=== PATIENT | male | born 1980 | race Caucasian/White ===

== ENCOUNTER 2019-02-06 17:18 | Emergency (ER) | payer MEDICAID ==
[~2019-02-06] VITALS: Ht 182.9 cm; Wt 81.8 kg
[2019-02-06 18:03] LABS: CLARITY,URINE SLIGHTLY CLOUDY (Clear); GLUCOSE, URINE NEGATIVE (Neg); KETONES,URINE NEGATIVE (Neg); LEUKOCYTE ESTERASE ,URINE NEGATIVE (Neg); NITRITES, URINE NEGATIVE (Neg); OCCULT BLOOD,URINE NEGATIVE (Neg); PROTEIN,URINE NEGATIVE (Neg)
[2019-02-06 18:10] LABS: COLOR,URINE DARK YELLOW (Yellow); UA COLLECTION TYPE VOIDED
[2019-02-06 18:13] LABS: AMORPHOUS URATES 2+
[2019-02-06 18:14] LABS: BACTERIA,URINE NONE SEEN /HPF (Neg); MUCUS STRANDS FEW /LPF (Neg); RBC,URINE NONE SEEN /HPF (0-2); SQUAMOUS EPITHELIAL CELL,UR FEW /LPF (FEW); WBC,URINE 0-4 /HPF (0-4)
[2019-02-06 18:15] LABS: HYALINE CASTS 0-3 /LPF (NEGATIVE)
[2019-02-06 18:16] LABS: BASOPHILS # (AUTO) 0.1 X10'3 (0-0.2); BASOPHILS % (AUTO) 1.4 % (0-1); EOSINOPHILS # (AUTO) 0.5 X10'3 (0-0.9); EOSINOPHILS % (AUTO) 5.8 % (0-6); HEMATOCRIT 46.5 % (42.0-52.0); LYMPHOCYTES # (AUTO) 4.3 X10'3 (1.1-4.8); LYMPHOCYTES % (AUTO) 47.8 % (21-51); MEAN CORPUSCULAR HEMOGLOBIN 30.1 PG (27.0-31.0); MEAN CORPUSCULAR HGB CONC 34.5 g/dL (33.0-36.5); MEAN CORPUSCULAR VOLUME 87.2 FL (78-98); MEAN PLATELET VOLUME 8.7 FL (7.4-10.4); MONOCYTES % (AUTO) 10.6 % (2-12); NEUTROPHILS # (AUTO) 3.1 X10'3 (1.8-7.7); NEUTROPHILS % (AUTO) 34.4 % (42-75); PLATELET COUNT 254 X10'3 (140-440); RED BLOOD COUNT 5.34 X10'6 (4.70-6.10); RED CELL DISTRIBUTION WIDTH 15.3 % (11.5-14.5)
[2019-02-06 18:25] LABS: ALBUMIN 3.6 G/DL (3.4-5.0); ALBUMIN/GLOBULIN RATIO 0.9 (1.1-1.5); ALKALINE PHOSPHATASE 293 IU/L (46-116); ANION GAP 6 (8-16); BILIRUBIN,TOTAL 1.4 MG/DL (0.1-1.0); BLOOD UREA NITROGEN 19 MG/DL (7-18); BUN/CREATININE RATIO 15.8 (5.4-32.0); CALCIUM 9.3 MG/DL (8.5-10.1); CHLORIDE 103 MMOL/L (99-107); GLUCOSE 86 MG/DL (70-104); POTASSIUM 4.1 MMOL/L (3.5-5.1); SODIUM 139 MMOL/L (135-145); TOTAL CARBON DIOXIDE 29.8 MMOL/L (24-32); TOTAL PROTEIN 7.4 G/DL (6.4-8.2); eGFR 68 ML/MIN
[2019-02-06 18:38] LABS: CKMB RELATIVE INDEX 2.4 RATIO (0-2.5); CREATINE KINASE 101 U/L (39-308)
[2019-02-06 18:45] LABS: ALANINE AMINOTRANSFERASE 1985 U/L (12-78); ASPARTATE AMINO TRANSFERASE 1198 U/L (10-37)
--- NOTE | 2019-02-06 19:47 | NUR ---
lab at bedside to draw bld.
[2019-02-06 20:00] LABS: PARTIAL THROMBOPLASTIN TIME 31 SECONDS (22-32)
[2019-02-06 20:17] VITALS: BP 124/62
[2019-02-08 14:23] LABS: HBSAG SCREEN Negative (Negative); HEP A AB, IGM Negative (Negative); HEP B CORE AB, IGM Negative (Negative); HEPATITIS C ANTIBODY >11.0 s/co ratio (0.0-0.9)
[2019-02-08] MEDS ORDERED: TEST200V10 IM (15:49)
[2019-02-09] MEDS ORDERED: ONDA4TAB6 PO (12:48)
[2019-02-09] MEDS ORDERED: TRAM50TA2 PO (12:48)
== END 2019-02-06 20:22 | disposition home or self-care (01) ==
LOC: ER 17:20
DX: B17.9 Acute viral hepatitis, unspecified (principal); F11.90 Opioid use, unspecified, uncomplicated; M79.10 Myalgia, unspecified site; R20.0 Anesthesia of skin; Z60.2 Problems related to living alone; Z56.0 Unemployment, unspecified; Z88.0 Allergy status to penicillin
CPT/HCPCS: 36415; 80053; 80074; 81001; 82550; 82553; 83874; 85025; 85610; 85730; 99283

== ENCOUNTER 2019-03-20 23:13 | Emergency (ER) | payer MEDICAID ==
[~2019-03-20] VITALS: Ht 182.9 cm; Wt 77.3 kg
[~2019-03-20 23:13] MED LIST: ONDA4TAB6 PO
[2019-03-20] MEDS ORDERED: LORazepam 1 MG tablet PO ONE (23:15)
--- NOTE | 2019-03-20 23:58 | NUR ---
HE IS SLEEPING
[2019-03-21 00:41] VITALS: BP 132/72
== END 2019-03-21 00:35 | disposition home or self-care (01) ==
LOC: ER 23:13
DX: F41.9 Anxiety disorder, unspecified (principal); F12.90 Cannabis use, unspecified, uncomplicated; F11.90 Opioid use, unspecified, uncomplicated; Z60.2 Problems related to living alone; Z56.0 Unemployment, unspecified; Z88.0 Allergy status to penicillin; Z79.899 Other long term (current) drug therapy
CPT/HCPCS: 99284

== ENCOUNTER 2019-06-20 10:00 | Emergency (ER) | payer MEDICAID ==
[~2019-06-20] VITALS: Ht 182.9 cm; Wt 74.0 kg
[2019-06-20] MEDS ORDERED: HYDROcodone/acetaminophen 5mg/325mg tablet PO ONE (10:40)
[2019-06-20] MEDS ORDERED: LORazepam 1 MG tablet PO ONE (10:40)
--- NOTE | 2019-06-20 10:40 | NUR ---
Dr Haley at bedside.
[2019-06-20] MEDS ORDERED: HYDR-3965 PO (10:41)
[2019-06-20 10:54] VITALS: BP 130/77
--- NOTE | 2019-06-20 11:00 | NUR ---
Dr Haley at bedside to check splint application. Pt okay to be discharged.
== END 2019-06-20 11:12 | disposition home or self-care (01) ==
LOC: ER 10:00
DX: S62.353A Nondisplaced fracture of shaft of third metacarpal bone, left hand, initial encounter for closed fracture (principal); F12.90 Cannabis use, unspecified, uncomplicated; F11.90 Opioid use, unspecified, uncomplicated; Z56.0 Unemployment, unspecified; Z60.2 Problems related to living alone; Z88.0 Allergy status to penicillin; Z79.899 Other long term (current) drug therapy; W22.8XXA Striking against or struck by other objects, initial encounter; Y93.89 Activity, other specified; Y92.89 Other specified places as the place of occurrence of the external cause; Y99.8 Other external cause status
CPT/HCPCS: 29125; 73110; 73130; 99284

== ENCOUNTER 2019-10-15 13:56 | Emergency (ER) | payer MEDICAID ==
[~2019-10-15] VITALS: Ht 182.9 cm; Wt 77.3 kg
[2019-10-15 15:04] LABS: BASOPHILS % (AUTO) 0.2 % (0-1); EOSINOPHILS # (AUTO) 0.1 X10'3 (0-0.9); EOSINOPHILS % (AUTO) 0.8 % (0-6); HEMATOCRIT 43.6 % (42.0-52.0); HEMOGLOBIN 14.8 g/dl (14.0-17.9); LYMPHOCYTES # (AUTO) 2.6 X10'3 (1.1-4.8); LYMPHOCYTES % (AUTO) 22.3 % (21-51); MEAN CORPUSCULAR HEMOGLOBIN 30.1 PG (27.0-31.0); MEAN CORPUSCULAR HGB CONC 33.8 g/dL (33.0-36.5); MEAN PLATELET VOLUME 7.7 FL (7.4-10.4); MONOCYTES % (AUTO) 8.2 % (2-12); NEUTROPHILS % (AUTO) 68.5 % (42-75); PLATELET COUNT 239 X10'3 (140-440); RED CELL DISTRIBUTION WIDTH 13.4 % (11.5-14.5); WHITE BLOOD COUNT 11.7 X10'3 (4.5-11.0)
[2019-10-15 15:21] LABS: CHLORIDE 99 MMOL/L (99-107); GLUCOSE 78 MG/DL (70-104); POTASSIUM 3.4 MMOL/L (3.5-5.1); SODIUM 135 MMOL/L (135-145); TOTAL CARBON DIOXIDE 30.1 MMOL/L (24-32)
[2019-10-15 15:22] LABS: CLARITY,URINE CLOUDY (Clear); COLOR,URINE YELLOW (Yellow); GLUCOSE, URINE NEGATIVE (Neg); KETONES,URINE 15 mg/dl (Neg); LEUKOCYTE ESTERASE ,URINE NEGATIVE (Neg); NITRITES, URINE NEGATIVE (Neg); OCCULT BLOOD,URINE NEGATIVE (Neg); PH,URINE 5.5 (4.8-8.0); PROTEIN,URINE NEGATIVE (Neg); UA COLLECTION TYPE CLN CATCH MIDSTREAM; UROBILINOGEN,URINE 0.2 E.U/dL (0.2-1.0)
[2019-10-15 15:22] LABS: ALANINE AMINOTRANSFERASE 41 U/L (12-78); ALBUMIN 4.1 G/DL (3.4-5.0); ALBUMIN/GLOBULIN RATIO 1.1 (1.1-1.5); ALKALINE PHOSPHATASE 67 IU/L (46-116); AMYLASE 117 U/L (25-115); ANION GAP 6 (8-16); ASPARTATE AMINO TRANSFERASE 30 U/L (10-37); BILIRUBIN,TOTAL 0.8 MG/DL (0.1-1.0); BLOOD UREA NITROGEN 18 MG/DL (7-18); BUN/CREATININE RATIO 18.8 (5.4-32.0); CALCIUM 8.5 MG/DL (8.5-10.1); CREATININE 0.96 MG/DL (0.60-1.10); LIPASE 310 U/L (73-393); TOTAL PROTEIN 7.8 G/DL (6.4-8.2); eGFR 87 ML/MIN
[2019-10-15] MEDS ORDERED: normal saline 1000ML IV soln IVB ONE ×2 (15:30→16:25)
[2019-10-15] MEDS ORDERED: ketorolac tromethamine 15mg/ml inj. IV ONE (15:30)
[2019-10-15] MEDS ORDERED: ondansetron/PF 4mg/2ml inj IV ONE (15:30)
[2019-10-15 15:34] LABS: AMORPHOUS URATES 4+; BACTERIA,URINE 1+ /HPF (Neg); RBC,URINE 0-2 /HPF (0-2); SQUAMOUS EPITHELIAL CELL,UR NONE SEEN /LPF (FEW); WBC,URINE 0-4 /HPF (0-4)
[2019-10-15] MEDS ORDERED: iohexol 300mg/ml 100ml inj. ONE (15:34)
--- NOTE | 2019-10-15 16:10 | NUR ---
Pt transported to CT via wheelchair with tech.
--- NOTE | 2019-10-15 16:16 | NUR ---
Pt returned from CT
[2019-10-15] MEDS ORDERED: ONDA4TAB12 PO (17:16)
[2019-10-15 17:24] VITALS: BP 135/79
== END 2019-10-15 17:30 | disposition home or self-care (01) ==
LOC: ER 13:56
DX: R10.11 Right upper quadrant pain (principal); R44.3 Hallucinations, unspecified; R11.0 Nausea; F12.90 Cannabis use, unspecified, uncomplicated; F11.90 Opioid use, unspecified, uncomplicated; Z60.2 Problems related to living alone; Z56.0 Unemployment, unspecified; Z88.0 Allergy status to penicillin; Z79.899 Other long term (current) drug therapy
CPT/HCPCS: 36415; 74177; 76700; 80053; 81001; 82150; 83690; 85025; 96361; 96374; 96375; 99285; J1885; J2405; J7030; Q9967

== ENCOUNTER 2020-07-02 20:53 | Emergency (ER) | payer MEDICAID ==
[~2020-07-02] VITALS: Ht 185.4 cm; Wt 77.3 kg
[2020-07-02 20:53] VITALS: BP 115/79
[~2020-07-02 20:53] MED LIST changes: +ONDA4TAB12 PO
[2020-07-02] MEDS ORDERED: CEPH250T PO (21:18)
[2020-07-02] MEDS ORDERED: SULF1TAB49 PO (21:18)
[2020-07-02] MEDS ORDERED: cephalexin 500mg capsule PO ONE (21:20)
[2020-07-02] MEDS ORDERED: ibuprofen 200mg tablet PO ONE (21:20)
== END 2020-07-02 21:35 | disposition home or self-care (01) ==
LOC: ER 20:53
DX: L03.211 Cellulitis of face (principal); F12.90 Cannabis use, unspecified, uncomplicated; F11.90 Opioid use, unspecified, uncomplicated; Z60.2 Problems related to living alone; Z56.0 Unemployment, unspecified; Z88.0 Allergy status to penicillin; Z79.2 Long term (current) use of antibiotics
CPT/HCPCS: 99283

== ENCOUNTER 2020-07-04 11:56 | Emergency (ER) | payer MEDICAID ==
[~2020-07-04] VITALS: Ht 182.9 cm; Wt 73.5 kg
[~2020-07-04 11:56] MED LIST changes: +CEPH250T PO; +SULF1TAB49 PO
[2020-07-04 12:26] VITALS: BP 140/74
[2020-07-04] MEDS ORDERED: IBUP-1984 PO (15:29)
== END 2020-07-04 15:36 | disposition home or self-care (01) ==
LOC: ER 11:57
DX: M27.2 Inflammatory conditions of jaws (principal); F12.90 Cannabis use, unspecified, uncomplicated; F11.90 Opioid use, unspecified, uncomplicated; Z56.0 Unemployment, unspecified; Z60.2 Problems related to living alone; Z88.0 Allergy status to penicillin; Z79.899 Other long term (current) drug therapy
CPT/HCPCS: 76882; 99284

== ENCOUNTER 2020-07-04 22:25 | Emergency (ER) | payer MEDICAID ==
[~2020-07-04] VITALS: Ht 182.9 cm; Wt 75.0 kg
[~2020-07-04 22:25] MED LIST changes: +IBUP-1984 PO
[2020-07-04 23:27] VITALS: BP 127/92
[2020-07-05] MEDS ORDERED: LIDOcaine 1% 30ml preserv. free vial IJ ONE (00:25)
[2020-07-05] MEDS ORDERED: LORazepam 1 MG tablet PO ONE (00:30)
--- NOTE | 2020-07-05 00:49 | NUR ---
WOUND TO LOWER LIP, PA THERE CLEANING WOUND AND STITCHING IT UP
[2020-07-05] MEDS: ibuprofen tablet 400 MG TABLET PO ONE ×2 (01:28→01:42)
== END 2020-07-05 01:31 | disposition home or self-care (01) ==
LOC: ER 22:26
DX: S01.511A Laceration without foreign body of lip, initial encounter (principal); Z88.0 Allergy status to penicillin; Z79.2 Long term (current) use of antibiotics; Z79.899 Other long term (current) drug therapy; Z56.0 Unemployment, unspecified; X58.XXXA Exposure to other specified factors, initial encounter; Y04.2XXA Assault by strike against or bumped into by another person, initial encounter; Y93.89 Activity, other specified; Y92.89 Other specified places as the place of occurrence of the external cause; Y99.8 Other external cause status
CPT/HCPCS: 12011; 99283

== ENCOUNTER → 2020-11-24 | Emergency (ER) | payer MEDICAID ==
[~2020-11-24] VITALS: Ht 182.9 cm; Wt 74.8 kg
[~2020-11-24] MED LIST changes: -CEPH250T PO; -IBUP-1984 PO; -SULF1TAB49 PO
[2020-11-24 17:52] VITALS: BP 151/130
[2020-11-24 18:27] LABS: URINE AMPHETAMINE SCREEN POSITIVE (Neg); URINE BARBITUATE SCREEN NEGATIVE (Neg); URINE BENZODIAZEPINES SCREEN NEGATIVE (Neg); URINE CANNABINOID SCREEN POSITIVE (Neg); URINE COCAINE SCREEN NEGATIVE (Neg); URINE METHADONE SCREEN NEGATIVE (Neg); URINE OPIATE SCREEN POSITIVE (Neg); URINE PHENCYCLIDINE SCREEN NEGATIVE (Neg)
[2020-11-24 18:39] LABS: CLARITY,URINE CLEAR (Clear); COLOR,URINE YELLOW (Yellow); GLUCOSE, URINE NEGATIVE (Neg); KETONES,URINE NEGATIVE (Neg); LEUKOCYTE ESTERASE ,URINE NEGATIVE (Neg); NITRITES, URINE NEGATIVE (Neg); OCCULT BLOOD,URINE NEGATIVE (Neg); PROTEIN,URINE NEGATIVE (Neg); UA COLLECTION TYPE CLN CATCH MIDSTREAM; UROBILINOGEN,URINE 0.2 E.U/dL (0.2-1.0)
== END | disposition left against medical advice (07) ==
LOC: ER 17:05
DX: F15.129 Other stimulant abuse with intoxication, unspecified (principal); R00.0 Tachycardia, unspecified; M79.601 Pain in right arm; R45.1 Restlessness and agitation; F12.90 Cannabis use, unspecified, uncomplicated; F11.90 Opioid use, unspecified, uncomplicated; Z60.2 Problems related to living alone; Z56.0 Unemployment, unspecified; Z88.0 Allergy status to penicillin; Z79.899 Other long term (current) drug therapy
CPT/HCPCS: 80305; 81003; 99283

== ENCOUNTER 2021-01-07 14:01 | Emergency (ER) | payer MEDICAID ==
[~2021-01-07] VITALS: Ht 182.9 cm; Wt 78.2 kg
[2021-01-07 14:32] VITALS: BP 126/84
[2021-01-07] MEDS ORDERED: BENZ-38 PO (14:37)
[2021-01-07] MEDS ORDERED: IBUP-1985 PO (14:37)
== END 2021-01-07 14:57 | disposition home or self-care (01) ==
LOC: ER 14:03
DX: M94.0 Chondrocostal junction syndrome [Tietze] (principal); R05.9 Cough, unspecified; F12.90 Cannabis use, unspecified, uncomplicated; F11.90 Opioid use, unspecified, uncomplicated; Z60.2 Problems related to living alone; Z56.0 Unemployment, unspecified; Z88.0 Allergy status to penicillin; Z79.899 Other long term (current) drug therapy
CPT/HCPCS: 99283

== ENCOUNTER 2021-01-16 19:27 | Inpatient (IN) | payer MEDICAID ==
[~2021-01-16] VITALS: Ht 182.9 cm; Wt 77.3 kg
[~2021-01-16 19:27] MED LIST changes: +BENZ-38 PO; +IBUP-1985 PO
[2021-01-16] MEDS ORDERED: iohexol 350MG/ML 100ml bottle IV ONE (20:06)
[2021-01-16 21:46] LABS: BASOPHILS # (AUTO) 0.1 X10'3 (0-0.2); BASOPHILS % (AUTO) 0.7 % (0-1); EOSINOPHILS # (AUTO) 0.5 X10'3 (0-0.9); EOSINOPHILS % (AUTO) 4.5 % (0-6); HEMATOCRIT 37.7 % (42.0-52.0); HEMOGLOBIN 12.7 g/dl (14.0-17.9); LYMPHOCYTES # (AUTO) 3.2 X10'3 (1.1-4.8); LYMPHOCYTES % (AUTO) 26.3 % (21-51); MEAN CORPUSCULAR HEMOGLOBIN 29.2 PG (27.0-31.0); MEAN CORPUSCULAR HGB CONC 33.7 g/dL (33.0-36.5); MEAN CORPUSCULAR VOLUME 86.5 FL (78-98); MEAN PLATELET VOLUME 7.1 FL (7.4-10.4); MONOCYTES # (AUTO) 1.2 X10'3 (0-0.9); MONOCYTES % (AUTO) 10.1 % (2-12); NEUTROPHILS # (AUTO) 7.1 X10'3 (1.8-7.7); NEUTROPHILS % (AUTO) 58.4 % (42-75); PLATELET COUNT 508 X10'3 (140-440); RED BLOOD COUNT 4.36 X10'6 (4.70-6.10); RED CELL DISTRIBUTION WIDTH 13.3 % (11.5-14.5); WHITE BLOOD COUNT 12.1 X10'3 (4.5-11.0)
[2021-01-16 21:52] LABS: ALBUMIN 2.7 G/DL (3.4-5.0); ANION GAP 9 (8-16); BLOOD UREA NITROGEN 14 MG/DL (7-18); BUN/CREATININE RATIO 15.4 (5.4-32.0); CALCIUM 8.9 MG/DL (8.5-10.1); CHLORIDE 97 MMOL/L (99-107); CREATININE 0.91 MG/DL (0.60-1.10); GLUCOSE 107 MG/DL (70-104); POTASSIUM 4.6 MMOL/L (3.5-5.1); SODIUM 135 MMOL/L (135-145); eGFR > 90 ML/MIN
[2021-01-16] MEDS ORDERED: BUPR1FIL3 SL (23:08)
[2021-01-16] MEDS ORDERED: LORA-269 PO (23:08)
[2021-01-16] MEDS ORDERED: potassium Cl 40MEQ/1/2NS 520ml 520 ML IV PRN ×2 (23:35)
[2021-01-16] MEDS: normal saline 1000ml 1,000 ML IV SCH (23:35)
[2021-01-16] MEDS ORDERED: magnesium 4gm in 100ml NS 100 ML IV PRN (23:35)
[2021-01-16] MEDS ORDERED: mag hydrox/Alum hydrox/simeth 30ml oral suspension PO PRN (23:35)
[2021-01-16] MEDS ORDERED: magnesium Cl slow-release 64mg tablet PO PRN (23:35)
[2021-01-16] MEDS ORDERED: magnesium hydroxide 30ml (MOM) UD suspension PO PRN (23:35)
[2021-01-16] MEDS ORDERED: potassium Cl 20 mEq SR tablet PO PRN ×2 (23:35)
[2021-01-16] MEDS ORDERED: morphine 2 MG/ML inj. syringe IV PRN (23:35)
[2021-01-16] MEDS ORDERED: ondansetron/PF 4mg/2ml inj IV PRN (23:35)
[2021-01-16] MEDS ORDERED: acetaminophen 325mg tablet PO PRN (23:35)
[2021-01-16] MEDS ORDERED: magnesium 2GM in 50ml NS 50 ML IV PRN (23:35)
[2021-01-16] MEDS: levoFLOXACIN-Levaquin 500mg/D5 100 ML IV SCH (23:40)
--- NOTE | 2021-01-17 00:54 | NUR ---
Received report from DAVID Zavaleta. Awaiting patient arrival to the floor.
[2021-01-17 01:20] VITALS: BP 108/60
[2021-01-17 01:50] LABS: URINE AMPHETAMINE SCREEN NEGATIVE (Neg); URINE BARBITUATE SCREEN NEGATIVE (Neg); URINE BENZODIAZEPINES SCREEN NEGATIVE (Neg); URINE CANNABINOID SCREEN POSITIVE (Neg); URINE COCAINE SCREEN NEGATIVE (Neg); URINE METHADONE SCREEN NEGATIVE (Neg); URINE OPIATE SCREEN NEGATIVE (Neg); URINE PHENCYCLIDINE SCREEN NEGATIVE (Neg)
[2021-01-17] MEDS: guaiFENesin/codeine phos 10ml UD oral syrup PO PRN ×4 (04:08→19:51)
[2021-01-17] MEDS: morphine 2 MG/ML inj. syringe IV PRN ×3 (05:57→18:57)
--- NOTE | 2021-01-17 06:33 | NUR ---
Problems reprioritized. Patient report given, questions answered & plan of care reviewed with DAVID Brandon.
[2021-01-17 06:35] LABS: ALANINE AMINOTRANSFERASE 17 U/L (12-78); ALBUMIN 2.2 G/DL (3.4-5.0); ALBUMIN/GLOBULIN RATIO 0.4 (1.1-1.5); ALKALINE PHOSPHATASE 63 IU/L (46-116); ANION GAP 7 (8-16); ASPARTATE AMINO TRANSFERASE 12 U/L (10-37); BILIRUBIN,TOTAL 0.3 MG/DL (0.1-1.0); BLOOD UREA NITROGEN 6 MG/DL (7-18); BUN/CREATININE RATIO 7.4 (5.4-32.0); CALCIUM 8.4 MG/DL (8.5-10.1); CHLORIDE 104 MMOL/L (99-107); CREATININE 0.81 MG/DL (0.60-1.10); GLUCOSE 105 MG/DL (70-104); MAGNESIUM 2.1 MG/DL (1.5-2.4); POTASSIUM 4.5 MMOL/L (3.5-5.1); SODIUM 139 MMOL/L (135-145); TOTAL CARBON DIOXIDE 28.3 MMOL/L (24-32); TOTAL PROTEIN 7.1 G/DL (6.4-8.2); eGFR > 90 ML/MIN
[2021-01-17 06:49] LABS: BASOPHILS # (AUTO) 0.1 X10'3 (0-0.2); BASOPHILS % (AUTO) 0.9 % (0-1); EOSINOPHILS # (AUTO) 0.5 X10'3 (0-0.9); HEMATOCRIT 35.9 % (42.0-52.0); HEMOGLOBIN 12.3 g/dl (14.0-17.9); LYMPHOCYTES # (AUTO) 2.4 X10'3 (1.1-4.8); LYMPHOCYTES % (AUTO) 23.5 % (21-51); MEAN CORPUSCULAR HEMOGLOBIN 29.7 PG (27.0-31.0); MEAN CORPUSCULAR HGB CONC 34.4 g/dL (33.0-36.5); MEAN CORPUSCULAR VOLUME 86.2 FL (78-98); MEAN PLATELET VOLUME 7.2 FL (7.4-10.4); MONOCYTES # (AUTO) 0.9 X10'3 (0-0.9); MONOCYTES % (AUTO) 8.8 % (2-12); NEUTROPHILS # (AUTO) 6.4 X10'3 (1.8-7.7); NEUTROPHILS % (AUTO) 61.8 % (42-75); PLATELET COUNT 506 X10'3 (140-440); RED BLOOD COUNT 4.16 X10'6 (4.70-6.10); RED CELL DISTRIBUTION WIDTH 13.5 % (11.5-14.5); WHITE BLOOD COUNT 10.3 X10'3 (4.5-11.0)
--- NOTE | 2021-01-17 07:04 | NUR ---
Patient in room [facility]. I have received report from Savannah HERNANDEZ and had the opportunity to ask questions and assume patient care.
[2021-01-17 07:35] VITALS: BP 121/74
[2021-01-17 07:37] VITALS: BP 114/60
[2021-01-17] MEDS ORDERED: buprenorphine/naloxone 8MG-2MG SUBlingual film SL SCH (08:00)
[2021-01-17] MEDS: K and/or MAG REPLACEMENT MC SCH ×2 (08:00→20:00)
[2021-01-17] MEDS: benzonatate 100mg capsule PO SCH ×3 (09:08→16:29)
[2021-01-17] MEDS: heparin, porcine 5000 units/ml vial SQ SCH ×2 (09:10→19:43)
[2021-01-17] MEDS: levoFLOXACIN-Levaquin 500mg/D5 100 ML IV SCH (09:18)
[2021-01-17] MEDS: HYDROcodone/acetaminophen 5mg/325mg tablet PO PRN ×2 (11:02→16:47)
[2021-01-17 11:18] VITALS: BP 113/63
--- NOTE | 2021-01-17 15:22 | NUR ---
PAGER ID: [phone] MESSAGE: Aleksandr Surg [id number] Re: [id number] Esa Dimas patient states he takes a Testosterone Cypionate injection that he is due, I said I would ask. Addendum: 01/17/21 at 1608 by Ricki Alicia RN received orders from and or alternate plan
--- NOTE | 2021-01-17 18:35 | NUR ---
Problems reprioritized. Patient report given, questions answered & plan of care reviewed with Rajwinder HERNANDEZ.
--- NOTE | 2021-01-17 18:40 | NUR ---
Patient in room [facility]. I have received report from KLEBER HERNANDEZ and had the opportunity to ask questions and assume patient care.
[2021-01-17] MEDS: lactobacillus rhamnosus 10,000 MMU CELLS/CAPSULE PO SCH (19:42)
[2021-01-17] MEDS: normal saline 1000ml 1,000 ML IV SCH (19:43)
[2021-01-17 20:00] VITALS: BP 99/75
[2021-01-17] MEDS: HYDROcodone/acetaminophen 10/325mg tab PO PRN (21:22)
[2021-01-18] VITALS: BP 92/56
[2021-01-18] MEDS: benzonatate 100mg capsule PO SCH ×3 (00:08→16:41)
[2021-01-18] MEDS: morphine 2 MG/ML inj. syringe IV PRN ×5 (00:10→20:16)
[2021-01-18] MEDS: guaiFENesin/codeine phos 10ml UD oral syrup PO PRN ×3 (03:51→20:15)
[2021-01-18] MEDS: HYDROcodone/acetaminophen 5mg/325mg tablet PO PRN (05:46)
[2021-01-18 06:07] LABS: BASOPHILS # (AUTO) 0.2 X10'3 (0-0.2); BASOPHILS % (AUTO) 1.4 % (0-1); EOSINOPHILS # (AUTO) 0.6 X10'3 (0-0.9); EOSINOPHILS % (AUTO) 5.7 % (0-6); HEMATOCRIT 39.2 % (42.0-52.0); HEMOGLOBIN 13.3 g/dl (14.0-17.9); LYMPHOCYTES # (AUTO) 3.2 X10'3 (1.1-4.8); LYMPHOCYTES % (AUTO) 28.8 % (21-51); MEAN CORPUSCULAR HEMOGLOBIN 29.3 PG (27.0-31.0); MEAN CORPUSCULAR HGB CONC 33.9 g/dL (33.0-36.5); MEAN CORPUSCULAR VOLUME 86.5 FL (78-98); MEAN PLATELET VOLUME 7.2 FL (7.4-10.4); MONOCYTES # (AUTO) 0.9 X10'3 (0-0.9); MONOCYTES % (AUTO) 8.2 % (2-12); NEUTROPHILS # (AUTO) 6.2 X10'3 (1.8-7.7); NEUTROPHILS % (AUTO) 55.9 % (42-75); PLATELET COUNT 551 X10'3 (140-440); RED BLOOD COUNT 4.53 X10'6 (4.70-6.10); RED CELL DISTRIBUTION WIDTH 13.3 % (11.5-14.5); WHITE BLOOD COUNT 11.2 X10'3 (4.5-11.0)
[2021-01-18 06:19] LABS: ALANINE AMINOTRANSFERASE 15 U/L (12-78); ALBUMIN 2.5 G/DL (3.4-5.0); ALBUMIN/GLOBULIN RATIO 0.5 (1.1-1.5); ALKALINE PHOSPHATASE 69 IU/L (46-116); ANION GAP 6 (8-16); ASPARTATE AMINO TRANSFERASE 12 U/L (10-37); BILIRUBIN,TOTAL 0.2 MG/DL (0.1-1.0); BLOOD UREA NITROGEN 10 MG/DL (7-18); BUN/CREATININE RATIO 10.5 (5.4-32.0); CALCIUM 8.9 MG/DL (8.5-10.1); CHLORIDE 103 MMOL/L (99-107); CREATININE 0.95 MG/DL (0.60-1.10); GLUCOSE 89 MG/DL (70-104); MAGNESIUM 2.1 MG/DL (1.5-2.4); POTASSIUM 4.4 MMOL/L (3.5-5.1); SODIUM 142 MMOL/L (135-145); TOTAL PROTEIN 7.9 G/DL (6.4-8.2); eGFR 88 ML/MIN
--- NOTE | 2021-01-18 06:30 | NUR ---
Problems reprioritized. Patient report given, questions answered & plan of care reviewed with ANNABELLE HERNANDEZ.
[2021-01-18] MEDS: levoFLOXACIN-Levaquin 500mg/D5 100 ML IV SCH (07:18)
[2021-01-18] MEDS: heparin, porcine 5000 units/ml vial SQ SCH ×3 (07:19→20:17)
[2021-01-18] MEDS: lactobacillus rhamnosus 10,000 MMU CELLS/CAPSULE PO SCH ×2 (07:19→20:15)
[2021-01-18] MEDS: LORazepam 1 MG tablet PO PRN (07:19)
[2021-01-18] MEDS: K and/or MAG REPLACEMENT MC SCH ×2 (07:22→20:00)
[2021-01-18 08:00] VITALS: BP 111/70
[2021-01-18] MEDS: HYDROcodone/acetaminophen 10/325mg tab PO PRN ×3 (10:21→21:50)
[2021-01-18 10:25] LABS: BFSOURCE RIGHT PLEURAL FLD; PLEURAL FLUID PH 7.351 (7.63-7.65)
[2021-01-18 10:46] LABS: GLUCOSE,BODY FLUID 99 MG/DL; TOTAL PROTEIN,BODY FLUID 5.4 G/DL
[2021-01-18 11:00] VITALS: BP 97/57
[2021-01-18 11:19] LABS: EOSINOPHILS,BODY FLUID 12 %; LYMPHOCYTES,BODY FLUID 75 %; MONOCYTES,BODY FLUID 1 %; NEUTROPHILS,BODY FLUID 12 %
[2021-01-18 11:23] LABS: BFAPPEAR BLOODY
[2021-01-18 11:24] LABS: BF RBC COUNT 37000 /CU MM; BF WBC COUNT 1660 /CU MM (0-1000); BFCOLOR RED; BFVOLUME 50 ML
[2021-01-18] MEDS: normal saline 1000ml 1,000 ML IV SCH (15:50)
[2021-01-18 20:00] VITALS: BP 116/68
[2021-01-18] MEDS: temazepam 15mg capsule PO PRN (20:15)
[2021-01-19] VITALS: BP 117/62
[2021-01-19] MEDS: benzonatate 100mg capsule PO SCH ×4 (01:12→23:58)
[2021-01-19] MEDS: morphine 2 MG/ML inj. syringe IV PRN ×5 (01:13→23:03)
[2021-01-19] MEDS: HYDROcodone/acetaminophen 10/325mg tab PO PRN ×4 (04:42→20:17)
[2021-01-19 06:19] LABS: BASOPHILS # (AUTO) 0.1 X10'3 (0-0.2); BASOPHILS % (AUTO) 1.1 % (0-1); EOSINOPHILS # (AUTO) 0.5 X10'3 (0-0.9); EOSINOPHILS % (AUTO) 4.8 % (0-6); HEMOGLOBIN 13.7 g/dl (14.0-17.9); LYMPHOCYTES # (AUTO) 3.2 X10'3 (1.1-4.8); LYMPHOCYTES % (AUTO) 28.6 % (21-51); MEAN CORPUSCULAR HEMOGLOBIN 29.6 PG (27.0-31.0); MEAN CORPUSCULAR HGB CONC 34.2 g/dL (33.0-36.5); MEAN CORPUSCULAR VOLUME 86.5 FL (78-98); MEAN PLATELET VOLUME 7.1 FL (7.4-10.4); MONOCYTES # (AUTO) 0.8 X10'3 (0-0.9); MONOCYTES % (AUTO) 7.1 % (2-12); NEUTROPHILS # (AUTO) 6.6 X10'3 (1.8-7.7); NEUTROPHILS % (AUTO) 58.4 % (42-75); PLATELET COUNT 593 X10'3 (140-440); RED BLOOD COUNT 4.63 X10'6 (4.70-6.10); RED CELL DISTRIBUTION WIDTH 13.5 % (11.5-14.5); WHITE BLOOD COUNT 11.3 X10'3 (4.5-11.0)
[2021-01-19 06:32] LABS: ALANINE AMINOTRANSFERASE 15 U/L (12-78); ALBUMIN 2.5 G/DL (3.4-5.0); ALBUMIN/GLOBULIN RATIO 0.5 (1.1-1.5); ALKALINE PHOSPHATASE 67 IU/L (46-116); ANION GAP 5 (8-16); ASPARTATE AMINO TRANSFERASE 11 U/L (10-37); BILIRUBIN,TOTAL 0.2 MG/DL (0.1-1.0); BLOOD UREA NITROGEN 9 MG/DL (7-18); CHLORIDE 105 MMOL/L (99-107); GLUCOSE 97 MG/DL (70-104); MAGNESIUM 2.2 MG/DL (1.5-2.4); POTASSIUM 4.4 MMOL/L (3.5-5.1); SODIUM 141 MMOL/L (135-145); TOTAL CARBON DIOXIDE 30.9 MMOL/L (24-32); TOTAL PROTEIN 7.9 G/DL (6.4-8.2); eGFR > 90 ML/MIN
[2021-01-19] MEDS: heparin, porcine 5000 units/ml vial SQ SCH ×2 (07:08→20:16)
[2021-01-19] MEDS: guaiFENesin/codeine phos 10ml UD oral syrup PO PRN ×3 (07:08→20:17)
[2021-01-19] MEDS: levoFLOXACIN-Levaquin 500mg/D5 100 ML IV SCH (07:08)
[2021-01-19] MEDS: lactobacillus rhamnosus 10,000 MMU CELLS/CAPSULE PO SCH ×2 (07:09→20:16)
[2021-01-19] MEDS: K and/or MAG REPLACEMENT MC SCH ×2 (07:10→18:23)
[2021-01-19 08:00] VITALS: BP 109/97
[2021-01-19 11:00] VITALS: BP 112/53
[2021-01-19] MEDS: normal saline 1000ml 1,000 ML IV SCH ×2 (11:54→23:03)
[2021-01-19 20:00] VITALS: BP 106/52
[2021-01-20] VITALS: BP 103/59
[2021-01-20] MEDS: temazepam 15mg capsule PO PRN
[2021-01-20] MEDS: HYDROcodone/acetaminophen 10/325mg tab PO PRN ×5 (01:11→22:58)
[2021-01-20] MEDS: morphine 2 MG/ML inj. syringe IV PRN ×4 (05:26→20:58)
--- NOTE | 2021-01-20 06:30 | NUR ---
Problems reprioritized. Patient report given, questions answered & plan of care reviewed with DAVID Montana.
[2021-01-20 07:20] LABS: BASOPHILS # (AUTO) 0.1 X10'3 (0-0.2); BASOPHILS % (AUTO) 1.4 % (0-1); EOSINOPHILS # (AUTO) 0.6 X10'3 (0-0.9); EOSINOPHILS % (AUTO) 6.5 % (0-6); HEMATOCRIT 40.5 % (42.0-52.0); HEMOGLOBIN 14.1 g/dl (14.0-17.9); LYMPHOCYTES # (AUTO) 3.3 X10'3 (1.1-4.8); LYMPHOCYTES % (AUTO) 34.7 % (21-51); MEAN CORPUSCULAR HEMOGLOBIN 29.9 PG (27.0-31.0); MEAN CORPUSCULAR HGB CONC 34.8 g/dL (33.0-36.5); MEAN PLATELET VOLUME 7.2 FL (7.4-10.4); MONOCYTES # (AUTO) 0.8 X10'3 (0-0.9); MONOCYTES % (AUTO) 8.9 % (2-12); NEUTROPHILS # (AUTO) 4.6 X10'3 (1.8-7.7); NEUTROPHILS % (AUTO) 48.5 % (42-75); PLATELET COUNT 606 X10'3 (140-440); RED BLOOD COUNT 4.71 X10'6 (4.70-6.10); RED CELL DISTRIBUTION WIDTH 13.6 % (11.5-14.5); WHITE BLOOD COUNT 9.4 X10'3 (4.5-11.0)
[2021-01-20 07:39] LABS: ALANINE AMINOTRANSFERASE 13 U/L (12-78); ALBUMIN 2.6 G/DL (3.4-5.0); ALBUMIN/GLOBULIN RATIO 0.5 (1.1-1.5); ALKALINE PHOSPHATASE 67 IU/L (46-116); ANION GAP 10 (8-16); ASPARTATE AMINO TRANSFERASE 10 U/L (10-37); BILIRUBIN,TOTAL 0.2 MG/DL (0.1-1.0); BLOOD UREA NITROGEN 13 MG/DL (7-18); CALCIUM 8.9 MG/DL (8.5-10.1); CHLORIDE 103 MMOL/L (99-107); CREATININE 0.93 MG/DL (0.60-1.10); GLUCOSE 89 MG/DL (70-104); MAGNESIUM 2.2 MG/DL (1.5-2.4); POTASSIUM 4.2 MMOL/L (3.5-5.1); SODIUM 142 MMOL/L (135-145); TOTAL CARBON DIOXIDE 28.9 MMOL/L (24-32); TOTAL PROTEIN 7.9 G/DL (6.4-8.2); eGFR 90 ML/MIN
[2021-01-20 08:00] VITALS: BP 121/76
[2021-01-20] MEDS: K and/or MAG REPLACEMENT MC SCH ×2 (08:00→20:00)
[2021-01-20] MEDS: lactobacillus rhamnosus 10,000 MMU CELLS/CAPSULE PO SCH ×2 (08:04→20:55)
[2021-01-20] MEDS: guaiFENesin/codeine phos 10ml UD oral syrup PO PRN ×3 (08:04→20:55)
[2021-01-20] MEDS: benzonatate 100mg capsule PO SCH ×2 (08:04→16:01)
[2021-01-20] MEDS: heparin, porcine 5000 units/ml vial SQ SCH ×2 (08:09→20:00)
[2021-01-20] MEDS: levoFLOXACIN-Levaquin 500mg/D5 100 ML IV SCH (08:10)
--- NOTE | 2021-01-20 08:48 | NUR ---
Initial: Pt admit for multifocal PNA with left-sided cavitary lesion, right sided pleural effusion, and possible septic emboli. Pt s/p thoracentesis 01/18 with 700 mL fluid removal per report. Currently on a regular diet documented with 100% PO intake throughout LOS meeting estimated nutrient needs. LBM 01/19. No documented edema or wounds. No nutrition diagnosis at this time. Will continue to follow. Recommendations: 1) Continue regular diet 2) Monitor need for additional protein for satiety 3) Bowel care PRN 4) Scaled weight this admit; weekly scaled weights thereafter Addendum: 01/20/21 at [address] Amended: Links added.
[2021-01-20 12:00] VITALS: BP 107/69
[2021-01-20] MEDS: normal saline 1000ml 1,000 ML IV SCH (16:01)
--- NOTE | 2021-01-20 18:10 | NUR ---
Gave report to Yumiko Calderon RN.
--- NOTE | 2021-01-20 18:30 | NUR ---
Patient in room [facility]. I have received report from FELICE HERNANDEZ and had the opportunity to ask questions and assume patient care.
[2021-01-20 20:00] VITALS: BP 141/56
[2021-01-20] MEDS: LORazepam 1 MG tablet PO PRN (22:53)
[2021-01-21] VITALS: BP 100/59
[2021-01-21] MEDS: benzonatate 100mg capsule PO SCH ×2 (00:53→07:09)
[2021-01-21] MEDS: HYDROcodone/acetaminophen 10/325mg tab PO PRN ×2 (04:46→09:36)
[2021-01-21] MEDS: guaiFENesin/codeine phos 10ml UD oral syrup PO PRN (04:46)
--- NOTE | 2021-01-21 06:30 | NUR ---
Problems reprioritized. Patient report given, questions answered & plan of care reviewed with MANN HERNANDEZ.
--- NOTE | 2021-01-21 06:42 | NUR ---
Patient in room [facility]. I have received report from DAVID VILLALOBOS and had the opportunity to ask questions and assume patient care.
[2021-01-21] MEDS: levoFLOXACIN-Levaquin 500mg/D5 100 ML IV SCH (07:08)
[2021-01-21] MEDS: lactobacillus rhamnosus 10,000 MMU CELLS/CAPSULE PO SCH (07:08)
[2021-01-21] MEDS: morphine 2 MG/ML inj. syringe IV PRN (07:09)
[2021-01-21 07:12] LABS: BASOPHILS # (AUTO) 0.1 X10'3 (0-0.2); BASOPHILS % (AUTO) 0.7 % (0-1); EOSINOPHILS # (AUTO) 0.7 X10'3 (0-0.9); EOSINOPHILS % (AUTO) 7.1 % (0-6); HEMOGLOBIN 13.5 g/dl (14.0-17.9); LYMPHOCYTES # (AUTO) 3.2 X10'3 (1.1-4.8); LYMPHOCYTES % (AUTO) 33.9 % (21-51); MEAN CORPUSCULAR HEMOGLOBIN 29.3 PG (27.0-31.0); MEAN CORPUSCULAR HGB CONC 33.8 g/dL (33.0-36.5); MEAN CORPUSCULAR VOLUME 86.7 FL (78-98); MEAN PLATELET VOLUME 7.3 FL (7.4-10.4); MONOCYTES # (AUTO) 0.7 X10'3 (0-0.9); MONOCYTES % (AUTO) 7.8 % (2-12); NEUTROPHILS # (AUTO) 4.7 X10'3 (1.8-7.7); NEUTROPHILS % (AUTO) 50.5 % (42-75); PLATELET COUNT 599 X10'3 (140-440); RED BLOOD COUNT 4.61 X10'6 (4.70-6.10); RED CELL DISTRIBUTION WIDTH 13.6 % (11.5-14.5); WHITE BLOOD COUNT 9.4 X10'3 (4.5-11.0)
[2021-01-21 07:23] VITALS: BP 109/76
[2021-01-21 07:37] LABS: HIV ANTIBODY 1&2 RAPID NON-REACTIVE (Neg)
[2021-01-21 07:41] LABS: ALANINE AMINOTRANSFERASE 15 U/L (12-78); ALBUMIN 2.7 G/DL (3.4-5.0); ALBUMIN/GLOBULIN RATIO 0.5 (1.1-1.5); ALKALINE PHOSPHATASE 66 IU/L (46-116); ANION GAP 9 (8-16); ASPARTATE AMINO TRANSFERASE 12 U/L (10-37); BILIRUBIN,TOTAL 0.2 MG/DL (0.1-1.0); BLOOD UREA NITROGEN 13 MG/DL (7-18); BUN/CREATININE RATIO 14.6 (5.4-32.0); CALCIUM 8.8 MG/DL (8.5-10.1); CHLORIDE 107 MMOL/L (99-107); CREATININE 0.89 MG/DL (0.60-1.10); GLUCOSE 90 MG/DL (70-104); MAGNESIUM 2.2 MG/DL (1.5-2.4); POTASSIUM 4.5 MMOL/L (3.5-5.1); SODIUM 144 MMOL/L (135-145); TOTAL CARBON DIOXIDE 27.6 MMOL/L (24-32); TOTAL PROTEIN 7.8 G/DL (6.4-8.2); eGFR > 90 ML/MIN
[2021-01-21] MEDS: heparin, porcine 5000 units/ml vial SQ SCH (07:49)
[2021-01-21] MEDS: K and/or MAG REPLACEMENT MC SCH (08:00)
[2021-01-21] MEDS ORDERED: LEVO500T90 PO (10:44)
[2021-01-21] MEDS ORDERED: GUAI600T45 PO (10:44)
--- NOTE | 2021-01-21 11:32 | NUR ---
Patient alert and oriented in no apparent acute distress with no complaints. Discussed with patient discharge in instructions and new prescriptions. Patient verbalize understanding of teaching. Patient dc'd with all personal belongings including home meds that were store in pharmacy. Patient was escorted out by tomeka tucker.
[2021-01-21 11:33] VITALS: BP 113/66
== END 2021-01-21 11:31 | disposition home or self-care (01) | DRG 139 ==
LOC: ER 19:28 → ED HOLD 23:38 → SUR 3N 01-17 01:24
PROVIDERS: ADMIT Internal Medicine; ATTEND Family Medicine
PROC: B32T1ZZ Computerized Tomography (CT Scan) of Left Pulmonary Artery using Low Osmolar Contrast (ICD-10-PCS; 2021-01-16)
PROC: B3201ZZ Computerized Tomography (CT Scan) of Thoracic Aorta using Low Osmolar Contrast (ICD-10-PCS; 2021-01-16)
PROC: B32S1ZZ Computerized Tomography (CT Scan) of Right Pulmonary Artery using Low Osmolar Contrast (ICD-10-PCS; 2021-01-16)
PROC: 0W993ZZ Drainage of Right Pleural Cavity, Percutaneous Approach (ICD-10-PCS; principal; 2021-01-18)
DX: J18.9 Pneumonia, unspecified organism (principal); J90 Pleural effusion, not elsewhere classified; D75.839 Thrombocytosis, unspecified; F19.10 Other psychoactive substance abuse, uncomplicated; B19.20 Unspecified viral hepatitis C without hepatic coma; Z20.822 Contact with and (suspected) exposure to COVID-19; F12.90 Cannabis use, unspecified, uncomplicated; G89.4 Chronic pain syndrome; Z88.0 Allergy status to penicillin; Z56.0 Unemployment, unspecified
CPT/HCPCS: 32555; 36415; 71045; 71275; 80048; 80053; 80305; 82945; 83605; 83735; 83986; 84145; 84157; 85025; 85610; 86703; 87040; 87070; 87081; 87635; 89051; 93306; 93970; 97161; 97530; 99285; C9803; G0378; J1644; J1956; J2270; J7030; Q9967

== ENCOUNTER 2021-03-12 04:55 | Emergency (ER) | payer MEDICAID ==
[~2021-03-12] VITALS: Ht 182.9 cm; Wt 79.5 kg
[~2021-03-12 04:55] MED LIST changes: -BENZ-38 PO; +BUPR1FIL3 SL; +GUAI600T45 PO; -IBUP-1985 PO; +LORA-269 PO; -ONDA4TAB12 PO; -ONDA4TAB6 PO
[2021-03-12 05:19] VITALS: BP 150/99
[2021-03-12] MEDS ORDERED: naproxen 500mg tablet PO ONE (08:15)
== END 2021-03-12 08:32 | disposition left against medical advice (07) ==
LOC: ER 04:56
DX: M54.50 Low back pain, unspecified (principal); R53.1 Weakness; F17.200 Nicotine dependence, unspecified, uncomplicated; F12.90 Cannabis use, unspecified, uncomplicated; F11.90 Opioid use, unspecified, uncomplicated; Z87.01 Personal history of pneumonia (recurrent); Z60.2 Problems related to living alone; Z56.0 Unemployment, unspecified; Z88.0 Allergy status to penicillin; Z79.899 Other long term (current) drug therapy; V99.XXXA Unspecified transport accident, initial encounter; Y93.89 Activity, other specified; Y92.89 Other specified places as the place of occurrence of the external cause; Y99.8 Other external cause status
CPT/HCPCS: 99281

== ENCOUNTER 2021-05-24 20:47 | Emergency (ER) | payer MEDICAID ==
[2021-05-24 21:36] VITALS: BP 139/79
== END 2021-05-24 21:38 | disposition left against medical advice (07) ==
LOC: ER 20:48
DX: Z53.21 Procedure and treatment not carried out due to patient leaving prior to being seen by health care provider (principal)

== ENCOUNTER 2021-05-24 22:30 | Emergency (ER) | payer MEDICAID ==
[~2021-05-24] VITALS: Ht 170.2 cm; Wt 72.7 kg
== END 2021-05-24 22:56 ==
LOC: ER 22:30
DX: F15.129 Other stimulant abuse with intoxication, unspecified (principal); F12.90 Cannabis use, unspecified, uncomplicated; F11.90 Opioid use, unspecified, uncomplicated; Z87.01 Personal history of pneumonia (recurrent); Z60.2 Problems related to living alone; Z56.0 Unemployment, unspecified; Z88.0 Allergy status to penicillin; Z79.899 Other long term (current) drug therapy
CPT/HCPCS: 99283

== ENCOUNTER 2021-08-20 21:51 | Emergency (ER) | payer MEDICAID ==
[~2021-08-20] VITALS: Ht 180.3 cm; Wt 68.2 kg
[2021-08-20 22:39] VITALS: BP 132/87
== END 2021-08-20 23:10 | disposition home or self-care (01) ==
LOC: ER 21:51
DX: F41.9 Anxiety disorder, unspecified (principal); R07.89 Other chest pain; R06.02 Shortness of breath; I10 Essential (primary) hypertension; F12.90 Cannabis use, unspecified, uncomplicated; F15.90 Other stimulant use, unspecified, uncomplicated; F11.90 Opioid use, unspecified, uncomplicated; Z87.01 Personal history of pneumonia (recurrent); Z60.2 Problems related to living alone; Z88.0 Allergy status to penicillin; Z79.899 Other long term (current) drug therapy
CPT/HCPCS: 71045; 93005; 99283